=== PATIENT | female | born 1990 | race African-American/Black ===

== ENCOUNTER 2021-08-06 18:21 | Emergency (ER) | payer OTHER ==
[~2021-08-06] VITALS: Ht 167.6 cm; Wt 72.6 kg
[~2021-08-06 18:21] MED LIST: FLEXERIL PO; IBUPROFEN 800800 M1 PO
[2021-08-06] MEDS ORDERED: SUPER THERAVIT1 EACH PO (18:38)
[2021-08-06 19:04] LABS: ABSOLUTE EOSINOPHILS 0.3 thou/uL (0.0-0.7); ABSOLUTE LYMPHOCYTES 1.8 thou/uL (0.8-5.3); ABSOLUTE MONOCYTES 0.7 thou/uL (0.0-1.2); ABSOLUTE NEUTROPHILS 4.8 thou/uL (1.6-8.1); BASOPHILS 0.5 %; EOSINOPHILS 3.5 %; HEMATOCRIT 30.5 % (37.0-47.0); LYMPHOCYTES 24.2 %; MCH 26.4 pg (26.0-34.0); MONOCYTES 9.3 %; MPV 6.1 fl. (7.2-11.1); NUCLEATED RBCS 0 /100WBC; PLATELET COUNT* 460 thou/uL (150-400); POLYS 62.5 %; RBC 3.81 mil/uL (4.20-5.00); WBC 7.6 thou/uL (4.0-11.0)
[2021-08-06 19:10] LABS: CALCIUM 8.5 mg/dL (8.5-10.1); CREATININE 1.2 mg/dL (0.6-1.3)
[2021-08-06 19:14] LABS: ALBUMIN 2.7 g/dL (3.4-5.0); TOTAL BILIRUBIN 0.2 mg/dL (<0.1-1.0); TOTAL PROTEIN 7.7 g/dL (6.4-8.2)
[2021-08-06] MEDS ORDERED: INDOMETHACIN 2525 MG PO (20:19)
[2021-08-06] MEDS ORDERED: APAP W/CODEINE1 TA2 PO (20:19)
[2021-08-06 20:24] LABS: ESR (SEDRATE) 130 mm/hr (0-20)
[2021-08-06 20:35] VITALS: BP 142/67
[2021-08-06] MEDS ORDERED: AZITHROMYCIN250 MG PO (20:35)
[2021-08-06] MEDS ORDERED: DOXYCYCLINE 10100 MG PO (20:36)
== END 2021-08-06 20:36 | disposition home or self-care (01) ==
LOC: M.ERS 18:21
PROVIDERS: Physician Assistant
DX: M25.571 Pain in right ankle and joints of right foot (principal); M25.561 Pain in right knee; M79.89 Other specified soft tissue disorders; Z79.899 Other long term (current) drug therapy; Z91.018 Allergy to other foods